=== PATIENT | male | born 1995 | race Two or more races ===

== ENCOUNTER 2020-02-01 07:25 | Outpatient (REF) | payer OTHER, SELFPAY ==
[2020-02-01 07:54] LABS: MANUAL DIFF FLAG NO
[2020-02-01 08:00] LABS: Basophils Absolute Auto 0.1 X10*3/uL (0.0-0.2); Basophils Percent Auto 0.8 % (0-2); Eosinophils Absolute Auto 0.5 X10*3/uL (0.0-0.4); Hematocrit 44.5 % (42-52); Hemoglobin 15.1 g/dl (14.0-18.0); Imm Gran Abs Auto 0.02 X10*3/uL (0.00-0.03); Imm Gran Pct Auto 0.2 % (0.0-0.4); Lymphocytes Absolute Auto 3.2 X10*3/uL (1.2-4.9); Lymphocytes Percent Auto 38.2 % (20-40); Mean Corpuscular HGB Conc 33.9 g/dl (31.0-36.0); Mean Corpuscular Hemoglobin 31.4 pg (27.0-33.0); Mean Corpuscular Volume 92.5 fL (80-98); Mean Platelet Volume 9.8 fL (9.4-12.4); Monocytes Absolute Auto 0.6 X10*3/uL (0.1-1.2); Monocytes Percent Auto 7.7 % (2-11); Neutrophils Absolute Auto 3.9 X10*3/uL (2.0-8.3); Neutrophils Percent Auto 47.1 % (45-73); Platelet Count 260 X10*3/uL (160-400); Red Blood Count 4.81 X10*6/uL (4.60-5.80); Red Cell Distribution Width 12.3 % (11.0-16.0); White Blood Count 8.3 X10*3/uL (4.8-10.8)
[2020-02-01 08:19] LABS: Alanine Aminotransferase 31 U/L (0-40); Albumin Level 4.8 g/dL (3.5-5.0); Alkaline Phosphatase 54 U/L (39-117); Anion Gap 11 (12-20); Aspartate Amino Transferase 23 U/L (5-37); Bilirubin Total 0.4 mg/dL (0.0-1.0); Blood Urea Nitrogen 10 mg/dL (9-16); Calcium 8.6 mg/dL (8.4-10.2); Carbon Dioxide 31 mmol/L (22-29); Chloride 104 mmol/L (96-108); Estimated Glomerular Filt Rate > 60; Glucose Fasting 103 mg/dL (60-99); Potassium 4.6 mmol/l (3.3-5.1); Sodium 141 mmol/L (135-145); Total Protein 7.5 g/dL (6.5-8.0)
[2020-02-01 08:54] LABS: TSH reflex Free T4 0.59 mIU/mL (0.32-4.0)
== END 2020-02-01 07:26 | disposition home or self-care (01) ==
LOC: HO.LAB 07:25
PROVIDERS: PCP Internal Medicine; Visit Provider Physician Assistant
DX: I47.1 Supraventricular tachycardia (principal)
CPT/HCPCS: 36415; 80053; 84443; 85025

== ENCOUNTER → 2020-03-11 09:17 | Outpatient (BNVA) | payer OTHER, SELFPAY | PROVIDERS: PCP Internal Medicine; Visit Provider Internal Medicine | DX: Z76.89 Persons encountering health services in other specified circumstances (principal) ==

== ENCOUNTER 2021-01-23 07:48 | Outpatient (REF) | payer OTHER, SELFPAY ==
--- NOTE | ~2021-01-23 | XR_ITS ---
EXAMINATION: XR WRIST, RIGHT CLINICAL INFORMATION: Pain COMPARISON: None TECHNIQUE: Four views of the right wrist. FINDINGS: No fracture or dislocation. Mild degenerative change at the distal radioulnar joint with small osteophytes. The carpal rows are well aligned. Joint spaces are maintained. The soft tissues are unremarkable. XR/XR wrist RT 2V IMPRESSION: Mild degenerative change at the distal radioulnar joint.
--- NOTE | ~2021-01-23 | XR_ITS ---
EXAMINATION: XR HAND, LEFT CLINICAL INFORMATION: Pain COMPARISON: None TECHNIQUE: 4 views of the left hand FINDINGS: No fracture or dislocation. Alignment is anatomic. Carpal rows are well aligned. Joint spaces are maintained. Soft tissues are unremarkable. XR/XR hand wrist LT IMPRESSION: Unremarkable appearance of the left hand/wrist.
== END 2021-01-23 07:49 | disposition home or self-care (01) ==
LOC: HO.XRAY 07:48
PROVIDERS: PCP Physician Assistant; Visit Provider Physician Assistant
DX: M77.8 Other enthesopathies, not elsewhere classified (principal)
CPT/HCPCS: 73100; 73110; 73130

== ENCOUNTER → 2021-01-26 12:45 | Outpatient (BNVA) | payer OTHER, SELFPAY | PROVIDERS: PCP Physician Assistant; Referring Provider Physician Assistant; Visit Provider Internal Medicine | DX: I47.1 Supraventricular tachycardia (principal) | CPT/HCPCS: 93005; 99212 ==

== ENCOUNTER → 2021-02-03 08:49 | Outpatient (BNVA) | payer OTHER, SELFPAY | PROVIDERS: Visit Provider Orthopaedic Surgery ==

== ENCOUNTER → 2021-02-16 10:47 | Outpatient (BNVA) | payer OTHER, SELFPAY | PROVIDERS: PCP Internal Medicine; Visit Provider Orthopaedic Surgery | DX: M77.8 Other enthesopathies, not elsewhere classified (principal) | CPT/HCPCS: 20550; 99202; J1100 ==

== ENCOUNTER 2022-04-01 06:20 | Outpatient (REF) | payer OTHER, SELFPAY ==
[2022-04-01 06:29] LABS: MANUAL DIFF FLAG NO
[2022-04-01 07:26] LABS: Basophils Absolute Auto 0.1 X10*3/uL (0.0-0.2); Basophils Percent Auto 0.5 % (0-2); Eosinophils Absolute Auto 0.3 X10*3/uL (0.0-0.4); Eosinophils Percent Auto 3.2 % (0-4); Hematocrit 41.1 % (42.0-52.0); Hemoglobin 13.8 g/dl (14.0-18.0); Imm Gran Abs Auto 0.03 X10*3/uL (0.00-0.03); Imm Gran Pct Auto 0.3 % (0.0-0.4); Lymphocytes Percent Auto 21.8 % (20-40); Mean Corpuscular HGB Conc 33.6 g/dl (31.0-36.0); Mean Corpuscular Hemoglobin 30.9 pg (27.0-33.0); Mean Corpuscular Volume 92.2 fL (80.0-98.0); Monocytes Absolute Auto 0.7 X10*3/uL (0.1-1.2); Monocytes Percent Auto 7.6 % (2-11); Neutrophils Absolute Auto 6.1 x10*3/uL (2.0-8.3); Neutrophils Percent Auto 66.6 % (45-73); Platelet Count 220 X10*3/uL (160-400); Red Blood Count 4.46 X10*6/uL (4.60-5.80); Red Cell Distribution Width 12.3 % (11.0-16.0); White Blood Count 9.2 X10*3/uL (4.8-10.8)
[2022-04-01 08:04] LABS: Alanine Aminotransferase 37 U/L (0-40); Albumin Level 4.3 g/dL (3.5-5.0); Alkaline Phosphatase 54 U/L (39-117); Anion Gap 12 (12-20); Aspartate Amino Transferase 33 U/L (5-37); Bilirubin Total 0.5 mg/dL (0.0-1.0); Blood Urea Nitrogen 18 mg/dL (9-16); Carbon Dioxide 28 mmol/L (22-29); Chloride 106 mmol/L (96-108); Cholesterol 122 mg/dL; Estimated Glomerular Filt Rate > 60; Glucose Fasting 89 mg/dL (60-99); HDL Cholesterol 45 mg/dL; LDL Cholesterol Calculated 68 mg/dl; Potassium 4.3 mmol/L (3.3-5.1); Sodium 142 mmol/L (135-145); Total Protein 6.8 g/dL (6.5-8.0); Triglycerides 49 mg/dL
[2022-04-01 08:23] LABS: TSH reflex Free T4 1.29 uIU/mL (0.32-4.0); Vitamin D 25-OH Total 17.1 ng/mL (>30)
== END 2022-04-01 06:21 | disposition home or self-care (01) ==
LOC: HO.LAB 06:20
PROVIDERS: PCP Nurse Practitioner Family; Visit Provider Nurse Practitioner Family
DX: Z00.00 Encounter for general adult medical examination without abnormal findings (principal)
CPT/HCPCS: 36415; 80053; 80061; 82306; 84443; 85025

== ENCOUNTER 2023-02-22 09:12 | Outpatient (REF) | payer OTHER, SELFPAY ==
[2023-02-22 12:06] LABS: Alanine Aminotransferase 23 U/L (0-40); Albumin Level 4.6 g/dL (3.5-5.0); Alkaline Phosphatase 55 U/L (39-117); Aspartate Amino Transferase 26 U/L (5-37); Bilirubin Direct 0.2 mg/dL (0.0-0.5); Bilirubin Total 0.6 mg/dL (0.0-1.0); Total Protein 7.4 g/dL (6.5-8.0)
[2023-02-22 12:08] LABS: Cholesterol 114 mg/dL (<200); HDL Cholesterol 33 mg/dL (>40); LDL Cholesterol Calculated 74 mg/dL (<100); Triglycerides 37 mg/dL (<150)
[2023-02-22 12:28] LABS: Vitamin D 25-OH Total 45.6 ng/mL (>30)
[2023-02-22 13:38] LABS: Reflex LDLD? No
== END 2023-02-22 09:13 | disposition home or self-care (01) ==
LOC: HO.HMGCLDS 09:12
PROVIDERS: PCP Nurse Practitioner Family; Visit Provider Physician Assistant Medical
DX: L73.2 Hidradenitis suppurativa (principal); L70.0 Acne vulgaris; R79.89 Other specified abnormal findings of blood chemistry
CPT/HCPCS: 36415; 80061; 80076; 82306

== ENCOUNTER 2024-08-13 17:30 | Outpatient (AMB) | payer OTHER, SELFPAY ==
--- OUTSIDE RECORDS SUMMARY | 2024-08-13 17:32 | XMS_ITS | Encounter Summary ---
Author Organization [facility] Address [address] [place] [address] Phone Care Team Providers Care Checker In Name Role Phone hCica Bowen MD Primary Care Provider Unavailabl e Encounter Details Date Type Department Care Team (Late st Contact Info) Description 11/10/2016 Conversion Encounter [facility] - [address] [address] Social History Tobacco Use Types Packs/Day Years Used Date Smoking Tobacco: Never Comments:Never smoker Sex and Gender Information Value Date Recorded Sex Assigned at Not on file Legal Sex Male 4:41 PM EDT Gender Identity Not on file Sexual Orientation Not on file documented as of this encounter Plan of Treatment Not on file documented as of this encounter Visit Diagnoses Not on filedocumented in this encounter Care Teams Checker In Relationship Specialty Start Date End Date Chica Bowen MD PCP - General 11/04/16 documented as of this encounter
--- OUTSIDE RECORDS SUMMARY | 2024-08-13 17:32 | XMS_ITS | Clinical Summary ---
Author Organization [facility] Address [address] [place] [address] Phone Care Team Providers Care Molding Manager Name Role Phone Chica Bowen MD Primary Care Provider Unavailabl e Immunizations Immunization Administration Dates Next Due DTP 06/29/1998, 6,1994, 995,1994 H1N1 04/20/2009 Hep B, ped/adol 1994,1994,1994 Hib (PRP-T) 05/16/1995, 5,1994, 994 IPV 06/29/1998, 5,1994, 994 Influenza Split 01/25/2011,01/21/2010 Influenza, injectable, trivalent 12/18/2008,1207/2007 MMR 06/29/1998,03/01/1995 Meningococcal Conj (Menactra) MCV4P 11/23/2006 Tdap 11/23/2006 Family History Relation Name Status Comments Maternal Grandfather Materna l uncle: Diabetes mellitus Paternal Grandfather Paterna l grandfather: Diabetes mellitus Social History Tobacco Use Types Packs/Day Years Used Date Smoking Tobacco: Never Comments:Never smoker Sex and Gender Information Value Date Recorded Sex Assigned at Not on file Legal Sex Male 4:41 PM EDT Gender Identity Not on file Sexual Orientation Not on file Last Filed Vital Signs Vital Sign Reading Time Taken Comments Blood Pressure 140/98 01/25/2011 12:00 AM EDT Pulse - - Temperature 36.7 ??C (98 ??F) 06/17/2011 12:00 AM EDT Respiratory Rate - - Oxygen Saturation - - Inhaled Oxygen Concentration - - Weight 94.8 kg (209 lb) 06/17/2011 12:00 AM EDT Height 165.9 cm (5' 5.3 ) 01/25/2011 12:00 AM ED T Body Mass Index - - Plan of Treatment Health Maintenance Due Date Last Done Comments Varicella Vaccines (1 of 2 - 13+ 2-dose series) 2007 DTaP,Tdap,and Td Vaccines (7 - Td or Tdap) 11/23/2016 11/23/2006, 06/29/1998, 05/16/1995, Additional history exists Influenza Vaccines (#1) 2023 01/26/20 11, 01/21/2010, 12/18/2008, Additional history exists COVID-19 Vaccine (2023- season) 2023 Hepatitis B Vaccines Completed 1994, 1994, 1994 HIB Vaccines Completed 05/16/1995, 07/26, 1994, Additional history exists IPV Vaccines Completed 06/29/1998, 07/26, 1994, Additional history exists MMR Vaccines Completed 06/29/1998, 03/01/1995 Meningococcal Vaccine Aged Out 11/23/2006 No rachel ar eligible based on patient's age to complete this topic HPV Vaccines Aged Out No longer eligi ble based on patient's age to complete this topic Hepatitis A Vaccines Aged Out No long er eligible based on patient's age to complete this topic Men B Vaccine Aged Out No longer elig ible based on patient's age to complete this topic Pneumococcal Vaccine Aged Out No long er eligible based on patient's age to complete this topic Care Teams Molding Manager Relationship Specialty Start Date End Date Chica Bowen MD PCP - General 11/04/16
--- OUTSIDE RECORDS SUMMARY | 2024-08-13 17:32 | XMS_ITS | Encounter Summary ---
Author Organization [facility] Address [address] [place] [phone] Phone Care Team Providers Care Toddler Caregiver Name Role Phone Chica Bowen MD Primary Care Provider Unavailabl e Encounter Details Date Type Department Care Team (Late st Contact Info) Description 03/29/2011 Documentation [facility] [place] Family Medicine [address] [place], [place] [phone] Family Medicine, Physician [address] [place] [address] Social History Tobacco Use Types Packs/Day Years Used Date Smoking Tobacco: Never Assessed Sex and Gender Information Value Date Recorded Sex Assigned at Not on file Legal Sex Male 4:41 PM EDT Gender Identity Not on file Sexual Orientation Not on file documented as of this encounter Plan of Treatment Not on file documented as of this encounter Visit Diagnoses Not on filedocumented in this encounter Care Teams Toddler Caregiver Relationship Specialty Start Date End Date Chica Bowen MD PCP - General 11/04/16 documented as of this encounter
--- NOTE | 2024-08-13 17:33 | A.OFFPC_ITS ---
Vital Signs 08/13/24 17:36 Height 5 ft 5.5 in Weight 196 lb BMI 32.1 BP 152/90 H Blood Pressure Location Lt brachial Position Sitting Intake Visit Reasons: Annual PE Intake Note: Patient here for a physical exam Manager Search Required: No Accompanied by: Self / Same As Patient Allergies amlodipine [Norvasc] Allergy (Unknown, Verified 08/13/24 17:41) tachicardia lisinopril Allergy (Unknown, Verified 08/13/24 17:41) lisinopril-hydrochlorothiazide-- swelling/angioedema Medication List - Last Reconciled 08/13/24 by Yazmin Gunter MD No Known Home Meds Tobacco use date assessed: 08/13/24 Dental Screening Dental Screen Date: 08/13/24 Did you have a dental visit in the last 12 months?: Yes Did you have a dental problem in the last 6 months where you did not have access to dental care?: No Was dental information given to patient?: Patient has dentist HPI HPI Comments History of Present Illness Details The patient is a 29-year-old male presenting for an annual physical examination and hypertension management. He has a history of essential hy pertension, with previous management attempts involving various antihypertensive agents. Metoprolol was specifically used for tachycardia, and past use of Norvasc and lisinopril with hydrochlorothiazide were discontinued due to adverse reactions. The patient reports consistently high blood pressure, potentially exacerbated by stress, with no accompanying cardiac symptoms. The patient has a familial predisposition to hypertension and arthritis but does not engage in tobacco or alcohol use. He has experienced intermittent head tremors, sometimes severe, leading to dizziness and headaches. Past medical history indicates no surgeries, and sleep apnea is not currently a concern. Recent labs demonstrated mild anemia with normal organ function. - Tetanus vaccination in 2015; next dose recommended for 2025. - Plan to repeat laboratory tests due to previous findings of marginally low hemoglobin levels. - Advise follow-up blood pressure monito ring in three weeks to reassess hypertension control. [facility] Medical History (Updated 08/13/24 @ 17:54 by Yazmin Gunter MD) DANIEL (obstructive sleep apnea) Surgical History No pertinent past surgical history Family History Father Hypertension Mother Arthritis Maternal Grandmother Breast cancer Social History Housing: House Alcohol intake: never Patient Tobacco Use Status: Never used Tobacco e-Cigarette/Vaping Use: Never Used Second Hand Smoke Exposure: No service: No Current occupational status: employed Current occupation: [employer] left hand Current occupational exposures/hazards: No Cognitive needs: No Hearing needs: No Vision needs: No Questionnaire PHQ-9 Over the last 2 weeks, how often have you been bothered by any of the following problems? 1. Little interest or pleasure in doing things: not at all 2. Feeling down, depressed, or hopeless: not at all 3. Trouble falling or staying asleep, or sleeping too much: not at all 4. Feeling tired or having little energy: not at all 5. Poor appetite or overeating: not at all 6. Feeling bad about yourself - or that you are a failure or have let yourself or your family down: not at all 7. Trouble concentrating on things, such as reading the newspaper or watching television: not at all 8. Moving or speaking so slowly that other people could have noticed. Or the opposite - being so fidgety or restless that you have been moving around a lot more than usual: not at all 9. Thoughts that you would be better off or of hurting yourself in some way: not at all Total score: 0 Depression Screening Interpretation: Negative Depression Screening Done: Yes 51908 - PHQ-9 Billing: Yes Source: Developed by Drs. Raymundo Hendrix, Juanis Lang, Aubrey Denis and colleagues, with an educational cynthia from [email or web address]. Thrive Questionnaire Date Thrive assessed: 08/06/24 I am a: Patient What is your living situation today?: I have a steady place to live Within the past 12 months, did the food you bought not last and you didn't have the money to get more?: Never true Within the past 12 months, did you worry whether your food would run out before you got money to buy more?: Never true Do you have trouble paying for medicines?: No Do you have trouble getting transportation to medical appointments?: No Do you have trouble paying your heating and electricity bill?: No Do you have trouble taking care of your child, family member or friend?: No Do you have trouble with day-to-day activities such as bathing, preparing meals, shopping, managing finances, etc.?: No Are you currently unemployed and looking for a job?: No Are you interested in more education?: No Please select the resources that you would like help with: None Currently or been in a relationship where the following occur: No concerns reported THRIVE Score: 0 AUDIT C Alcohol Use Questionnaire (AUDIT-C) 1. How often do you have a drink containing alcohol?: Never Total Score: 0 Score Reviewed/Action Taken: No TIANNA-7 AMB Questionnaire TIANNA-7 Date TIANNA - 7 assessed: 08/13/24 Feeling nervous, anxious, or on edge: 0 = Not at all Not being able to stop or control worryin = Not at all Worrying too much about different things: 0 = Not at all Trouble relaxin = Not at all Being so restless that it is hard to sit still: 0 = Not at all Becoming easily annoyed or irritable: 0 = Not at all Feeling afraid as if something awful might happen: 0 = Not at all Total TIANNA-7 score (0-4 normal; 5-9 mild; 10-14 moderate; 15-21 severe): 0 Source: Developed by Drs. Raymundo Hendrix, Juanis Lang, Aubrey Denis and colleagues, with an educational cynthia from [email or web address]. TIANNA-7 Assessment Billing TIANNA-7 Assessment Tool: TIANNA-7 Assessment 03893 Review of Systems Const All systems reviewed & are unremarkable except as noted in HPI and below Card Denies chest pain at rest, Denies chest pain with activity, Denies edema, Denies irregular heart rhythm, Denies claudication, Denies dyspnea, Denies dyspnea on exertion, Denies orthopnea, Denies paroxysmal nocturnal dyspnea and Denies slow heart rate Resp Denies cough, Denies dyspnea and Denies dyspnea on exertion GI Denies abdominal pain, Denies change in bowel habits, Denies excessive flatus, Denies nausea and Denies vomiting Physical exam (Primary Care) Vital Signs: Last Vital Signs BP 152/90 H 08/13/24 17:36 BMI result Body Mass Index 32.1 BMI Assessment/Plan discussion: High BMI High, discussed plan: lifestyle, weight reduction, dietary and physical activity Tobacco/Smoking Status: Tobacco use Status Tobacco use date assessed 08/13/24 08/13/24 17:39 Patient Tobacco Use Status Never used Tobacco 08/13/24 17:39 e-Cigarette/Vaping Use Never Used 08/13/24 17:39 PHQ-9: PHQ-9 Score PHQ-9: Total score 0 08/13/24 17:39 Depression Screening Interpretation: Negative Thrive Assessment: Date of Thrive Assessment Date Thrive assessed 08/06/24 08/13/24 17:39 Currently or been in a relationship where the following occur: No concerns reported HENMT Head: Yes normal to inspection, Yes normocephalic and Yes atraumatic Ears: external ears normal Eyes General: appearance normal, both eyes and all related structures Eyelids: Yes eyelids normal Conjunctivae: conjunctivae normal Neck Neck: Yes normal visual inspection and Yes supple Resp Effort & Inspection: normal respiratory effort Auscultation: clear to auscultation bilaterally Cardio Jugular venous distension: no JVD Rate: regular rate Rhythm: regular rhythm Heart sounds: S1 normal heart sound present and S2 normal heart sound present GI Inspection: Yes normal to inspection Palpation (GI): Soft to palpation and nontender Auscultation: normal bowel sounds Skin General skin exam: no rashes or lesions noted Neuro General: no focal motor deficits Extrem General: Yes full ROM Psych Appearance: grossly normal Coding Level of Care Code Est Pt Level 3 (89711) Est Pt Prev Care 18-39y(53722) Diagnoses Adult general medical exam Z00.00 Benign head tremor G25.0 Essential hypertension I10 Additional Codes PHQ-9 - 28264 - PHQ-9 Billing: Yes ([id number]) TIANNA-7 Assessment Billing - TIANNA-7 Assessment Tool: TIANNA-7 Assessment 40993 ([id number]) Time Spent (min) 31 Assessment & Plan Assessment & Plan (1) Adult general medical exam: Code(s): Z00.00 - Encounter for general adult medical examination without abnormal findi ngs Category: Medical (2) Benign head tremor: Code(s): G25.0 - Essential tremor Category: Medical (3) Essential hypertension: Code(s): I10 - Essential (primary) hypertension Category: Medical Plan The patient's management involves close blood pressure monitoring and adjustment of antihypertensive therapy to avoid adverse reactions previously experienced. A neurologist's evaluation might be warranted to further assess intermittent head tremors. Emphasis will be placed on managing lifestyle factors, including diet and stress, to complement pharmacological intervention. Considering the family history and recent lab findings, repeated assessments of hemoglobin will be pursued to evaluate anemia causes. The patient will receive guidance regardin g health maintenance, with particular focus on preventative care measures and scheduled follow-up consultations. Patient was informed and verbally consented to the use of an ambient scribe for clinic note documentation during this visit. During our discussion, I advised the patient about the potential benefits and limitations of various antihypertensive medications, elaborating on the steps to monitor and manage his blood pressure effectively. We reviewed the need for neurology consultation to address any possible neurological implications of the head tremors. We talked about the importance of lifestyle management in reducing hypertension and the need for periodic blood tests to check hemoglobin levels. I ensured the patient understood follow-up and monitoring strategies and advised on the anticipated diagnostic processes to manage current health concerns comprehensively. Orders: Orders IRON PROFILE Today D64.9 - Anemia, unspecified Vitamin D 25-OH Total Today E55.9 - Vitamin D deficiency, unspecified Lipid Panel Today E78.5 - Hyperlipidemia, unspecified, Z00.00 - Encounter for general adult medical examination without abnormal findings Complete Blood Count Auto Diff Today D64.9 - Anemia, unspecified Comprehensive [place]. Panel Fast Today Z00.00 - Encounter for general adult medical examination without abnormal findings Referrals Neurology Referral G25.0 - Essential tremor Patient Instructions: - Continue current diet and exercise practices to help manage blood pressure. - Return for a follow-up blood pressure check in three weeks. - Watch for any aggravation in tremor symptoms and report immediately. - Follow-up on hematology laboratory tests as discussed.
[2024-08-13 17:36] VITALS: BP 152/90; BMI 32.1
== END 2024-08-13 17:54 | disposition home or self-care (01) ==
LOC: HO.HMCH 17:30
PROVIDERS: PCP Internal Medicine; Visit Provider Internal Medicine
DX: Z00.00 Encounter for general adult medical examination without abnormal findings (principal); G25.0 Essential tremor; I10 Essential (primary) hypertension

== ENCOUNTER → 2024-08-13 17:30 | Outpatient (BNVA) | payer OTHER, SELFPAY | PROVIDERS: PCP Internal Medicine; Visit Provider Internal Medicine | DX: Z00.00 Encounter for general adult medical examination without abnormal findings (principal); I10 Essential (primary) hypertension; G25.0 Essential tremor; D64.9 Anemia, unspecified; E55.9 Vitamin D deficiency, unspecified; E78.5 Hyperlipidemia, unspecified | CPT/HCPCS: 96127; 99212; 99395 ==

== ENCOUNTER → 2024-09-05 15:34 | Outpatient (BNVA) | payer OTHER, SELFPAY | PROVIDERS: PCP Internal Medicine ==

== ENCOUNTER → 2024-10-03 15:45 | Outpatient (BNVA) | payer OTHER, SELFPAY | PROVIDERS: PCP Internal Medicine | DX: Z01.89 Encounter for other specified special examinations (principal) | CPT/HCPCS: 99211 ==

== ENCOUNTER 2025-03-26 07:58 | Outpatient (AMB) | payer OTHER, SELFPAY ==
--- OUTSIDE RECORDS SUMMARY | 2025-03-26 08:01 | XMS_ITS | Encounter Summary ---
Author Organization [facility] Address [address] [place] [address] Phone Care Team Providers Care Assisted Living Director Name Role Phone Chica Bowen MD Primary Care Provider Unavailabl e Encounter Details Date Type Department Care Team (Late st Contact Info) Description 06/24/2009 Documentation [facility] [place] [address] [place], [place] [phone] Family Medicine, Physician [address] [place] [address] Social History Tobacco Use Types Packs/Day Years [...] on filedocumented in this encounter Care Teams Assisted Living Director Relationship Specialty Start Date End Date Chica Bowen MD PCP - General 11/04/16 documented as of this encounter
--- OUTSIDE RECORDS SUMMARY | 2025-03-26 08:02 | XMS_ITS | Encounter Summary ---
Author Organization [facility] Address [address] [place] [address] Phone Care Team Providers Care Electronic Warfare Technician Name Role Phone Chica Bowen MD Primary Care Provider Unavailabl e Encounter Details Date Type Department Care Team (Late st Contact Info) Description 11/10/2016 Conversion Encounter [facility] - [address] [address] Social History Tobacco Use Types Packs/Day Years [...] on filedocumented in this encounter Care Teams Electronic Warfare Technician Relationship Specialty Start Date End Date Chica Bowen MD PCP - General 11/04/16 documented as of this encounter
--- OUTSIDE RECORDS SUMMARY | 2025-03-26 08:02 | XMS_ITS | Clinical Summary ---
Author Organization [facility] Address [address] [place] [address] Phone Care Team Providers Care Skirt Clipper Name Role Phone Chica Bowen MD Primary [...] AM EDT Pulse - - Temperature 36.7 C (98 F) 06/17/2011 12:00 AM EDT Respiratory Rate - [...] 11/23/2016 11/23/2006, 06/29/1998, 05/16/1995, Additional history exists HPV Vaccines (1 - 3-dose SCDM series) 2021 Influenza Vaccines (#1) 2024 01/26/20 11, 01/21/2010, 12/18/2008, Additional history exists COVID-19 Vaccine ( season) 2024 Hepatitis B Vaccines Completed 1994, 1994, 1994 [...] age to complete this topic Care Teams Skirt Clipper Relationship Specialty Start Date End Date Chica Bowen MD PCP - General 11/04/16
--- OUTSIDE RECORDS SUMMARY | 2025-03-26 08:02 | XMS_ITS | Encounter Summary ---
Author Organization [facility] Address [address] [place] [phone] Phone Care Team Providers Care Gripper Installer Name Role Phone Chica Bowen MD Primary Care Provider Unavailabl e Encounter Details Date Type Department Care Team (Late st Contact Info) Description 03/29/2011 Documentation [facility] [place] [address] [place], [place] [phone] Family Medicine, Physician [address] [place] [address] Social History Tobacco Use Types Packs/Day Years [...] on filedocumented in this encounter Care Teams Gripper Installer Relationship Specialty Start Date End Date Chica Bowen MD PCP - General 11/04/16 documented as of this encounter
[2025-03-26 08:09] VITALS: BP 136/84; BMI 33.6
--- NOTE | 2025-03-26 08:09 | MHC.PC.OV ---
Vital Signs 03/26/25 08:09 Height 5 ft 5 in Weight 202 lb BMI 33.6 BP 136/84 Blood Pressure Location Lt brachial Position Sitting Intake Visit Reasons: hyperlipidemia Intake Note: Patient here for a follow up hyperlipidemia, bowel concerns Telephone Order Dispatcher Required: No Accompanied by: Self / Same As Patient Allergies amlodipine (Norvasc) Allergy (Unknown, Verified 03/26/25 08:16) tachicardia lisinopril Allergy (Unknown, Verified 03/26/25 08:16) lisinopril-hydrochlorothiazide-- swelling/angioedema Medication List - Last Reconciled 03/26/25 by Yazmin Gunter MD losartan 100 mg PO DAILY 90 days Tobacco use date assessed: 08/13/24 Dental Screening Dental Screen Date: 03/26/25 Did you have a dental visit in the last 12 months?: No Did you have a dental problem in the last 6 months where you did not have access to dental care?: No Was dental information given to patient?: Patient has dentist HPI HPI Comments History of Present Illness Details The patient is a 30 year old male presenting for follow-up and management of chronic conditions. He takes losartan, and his last cholesterol check two years ago was normal. The patient has a history of sleep apnea, with his last sleep study conducted over four years ago. He reports he is not currently using his CPAP machine, having stopped its use when he started losing weight. He notes a sensation of strong pressure and reduced breathing when he does not use the machine, but denies experiencing daytime somnolence or feeling tired. He has a history of obesity but has made efforts to lose weight, although he has recently gained back from 180 pounds to 200 pounds. He states he continues to exercise and tries to eat healthily about 70-80% of the time, and he also reports issues with constipation. Past medical history is notable for slight anemia and low vitamin D, which have been previously addressed. He also reports allergic rhinitis, for which he uses a nasal spray. [facility] Medical History (Updated 03/26/25 @ 08:24 by Yazmin Gunter MD) SVT (supraventricular tachycardia) DANIEL (obstructive sleep apnea) Surgical History No pertinent past surgical history Family History Father Hypertension Mother Arthritis Maternal Grandmother Breast cancer Social History Housing: House Alcohol intake: never Patient Tobacco Use Status: Never used Tobacco e-Cigarette/Vaping Use: Never Used Second Hand Smoke Exposure: No service: No Current occupational status: employed Current occupation: [employer] left hand Current occupational exposures/hazards: No Cognitive needs: No Hearing needs: No Vision needs: No Questionnaire Thrive Questionnaire Date Thrive assessed: 08/06/24 I am a: Patient What is your living situation today?: I have a steady place to live Within the past 12 months, did the food you bought not last and you didn't have the money to get more?: Never true Within the past 12 months, did you worry whether your food would run out before you got money to buy more?: Never true Do you have trouble paying for medicines?: No Do you have trouble getting transportation to medical appointments?: No Do you have trouble paying your heating and electricity bill?: No Do you have trouble taking care of your child, family member or friend?: No Do you have trouble with day-to-day activities such as bathing, preparing meals, shopping, managing finances, etc.?: No Are you currently unemployed and looking for a job?: No Are you interested in more education?: No Please select the resources that you would like help with: None Currently or been in a relationship where the following occur: No concerns reported THRIVE Score: 0 TIANNA-7 AMB Questionnaire TIANNA-7 Date TIANNA - 7 assessed: 08/13/24 Source: Developed by Drs. Raymundo Hendrix, Juanis Lang, Aubrey Denis and colleagues, with an educational cynthia from [employer]. Review of Systems Const All systems reviewed & are unremarkable except as noted in HPI and below Card Denies chest pain at rest, Denies chest pain with activity, Denies edema, Denies irregular heart rhythm, Denies claudication, Denies dyspnea, Denies dyspnea on exertion, Denies orthopnea, Denies paroxysmal nocturnal dyspnea and Denies slow heart rate Resp Denies cough, Denies dyspnea and Denies dyspnea on exertion Physical exam (Primary Care) Vital Signs: Last Vital Signs BP 136/84 03/26/25 08:09 BMI result Body Mass Index 33.6 BMI Assessment/Plan discussion: High BMI High, discussed plan: lifestyle, weight reduction, dietary and physical activity Tobacco/Smoking Status: Tobacco use Status Tobacco use date assessed 08/13/24 03/26/25 08:12 Patient Tobacco Use Status Never used Tobacco 03/26/25 08:12 e-Cigarette/Vaping Use Never Used 03/26/25 08:12 Thrive Assessment: Date of Thrive Assessment Date Thrive assessed 08/06/24 03/26/25 08:12 Currently or been in a relationship where the following occur: No concerns reported Resp Effort & Inspection: normal respiratory effort Auscultation: clear to auscultation bilaterally Cardio Jugular venous distension: no JVD Rate: regular rate Rhythm: regular rhythm Heart sounds: S1 normal heart sound present and S2 normal heart sound present Extrem General: Yes full ROM Office Procedures Flu Questionnaire Does the patient have a severe egg allergy?: No Does the patient have severe life threatening allergies?: No Does the patient have a fever or illness today?: No Has the patient ever had Guillain-Cypress Syndrome?: No Has the patient ever had any past reaction to a flu shot?: No Immunizations Fluarix [id number] (PF) 45 mcg (15 mcg x 3)/0.5 mL IM syringe Performing Provider: Yazmin Gunter MD [place] [facility] Administered by: EMIL Talbot on 03/26/25 08:29 Dose Route Admin Location Dispensed Lot Number Expiration Date 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 Eligible 03/26/25 Private Coding Level of Care Code Est Pt Level 4 (22027) Diagnoses Essential hypertension I10 DANIEL (obstructive sleep apnea) G47.33 Allergic rhinitis J30.9 Low vitamin D level R79.89 Anemia D64.9 Chronic idiopathic constipation K59.04 Time Spent (min) 21 Assessment & Plan Assessment & Plan (1) Essential hypertension: Code(s): I10 - Essential (primary) hypertension Category: Medical (2) DANIEL (obstructive sleep apnea): Code(s): G47.33 - Obstructive sleep apnea (adult) (pediatric) Category: Medical (3) Allergic rhinitis: Code(s): J30.9 - Allergic rhinitis, unspecified Category: Medical (4) Low vitamin D level: Code(s): R79.89 - Other specified abnormal findings of blood chemistry Category: Medical (5) Anemia: Code(s): D64.9 - Anemia, unspecified Category: Medical (6) Chronic idiopathic constipation: Code(s): K59.04 - Chronic idiopathic constipation Category: Medical Plan Plan 1. Obstructive Sleep Apnea The patient is nonadherent with his CPAP machine, which was prescribed following a sleep study over four years ago. He reports symptomatic improvement when using it but stopped after losing weight. A referral will be placed to Sleep Medicine for re-evaluation. 2. Obesity The patient has a history of obesity and despite prior weight loss, has experienced a recent weight gain from 180 to 200 pounds. He was counseled to continue with weight loss efforts. 3. Allergic Rhinitis The patient reports needing his nasal spray for allergic rhinitis. A prescription for nasal spray will be sent to his pharmacy. 4. Constipation The patient reports recent problems with constipation. A prescription to manage constipation will be be sent to his pharmacy. 5. Anemia Patient denies any active bleeding. CBC will be ordered. 6. Hypertension Continue losartan. Blood pressure goal is equal or less than 130/80. 7. Low vitamin-D Continue vitamin-D supplements. Vitamin-D levels will be recheck.. Orders: Orders Influenza [id number] Immunization Today Z23 - Encounter for immunization Referrals Sleep Medicine Referral G47.33 - Obstructive sleep apnea (adult) (pediatric) Medications: New fluticasone propionate 50 mcg/actuation (Flonase Allergy Relief) administer into each nostril 1 spray intranasal DAILY 16 grams 6RF 30 days J30.9 - Allergic rhinitis, unspecified docusate calcium 240 mg PO BEDTIME PRN 30 caps 1RF constipation 30 days K59.04 - Chronic idiopathic constipation Refilled losartan 100 mg PO DAILY 90 tabs 1RF 90 days
== END 2025-03-26 08:29 | disposition home or self-care (01) ==
LOC: HO.HMCH 07:59
PROVIDERS: PCP Internal Medicine; Visit Provider Internal Medicine
DX: I10 Essential (primary) hypertension (principal); G47.33 Obstructive sleep apnea (adult) (pediatric); J30.9 Allergic rhinitis, unspecified; R79.89 Other specified abnormal findings of blood chemistry; D64.9 Anemia, unspecified; K59.04 Chronic idiopathic constipation; Z23 Encounter for immunization

== ENCOUNTER → 2025-03-26 07:58 | Outpatient (BNVA) | payer OTHER, SELFPAY | PROVIDERS: PCP Internal Medicine; Visit Provider Internal Medicine | DX: G47.33 Obstructive sleep apnea (adult) (pediatric) (principal); E66.9 Obesity, unspecified; K59.04 Chronic idiopathic constipation; D64.9 Anemia, unspecified; I10 Essential (primary) hypertension; J30.9 Allergic rhinitis, unspecified; R79.89 Other specified abnormal findings of blood chemistry; Z23 Encounter for immunization; Z79.899 Other long term (current) drug therapy | CPT/HCPCS: 90471; 90656; 99212 ==